=== PATIENT | female | born 1970 | race Caucasian/White ===

== ENCOUNTER 2021-10-15 13:44 | Day surgery (SDC) | payer OTHER, SELFPAY ==
[2021-10-15] VITALS (9 sets, daily range): BP systolic 125–152; BP diastolic 77–93; PULSE 75–109; RESP 12–20; TEMP 36.1–36.8; O2SAT 98–100
--- NOTE | ~2021-10-15 | CT_ITS ---
EXAMINATION: CT abdomen pelvis wo con DATE: 10/15/2021 15:42 INDICATION: Left lower quadrant abdominal pain since 0200 hours today. Nausea, vomiting, diarrhea. TECHNIQUE: Computed tomography (CT) of the abdomen and pelvis was performed without intravenous contr ast. Automated exposure control and iterative reconstruction technique were employed. Exam dose: 470 .37 mGy-cm total exam DLP. COMPARISON: None. FINDINGS: The lung bases are clear of infiltrate or consolidation. Normal heart size. No pericardial or pleural effusion. The liver, gallbladder, bile ducts, spleen, pancreas, pancreatic duct, and adrenal glands and kidneys are unremarkable. Normal caliber of the abdominal aorta. No intraperitoneal or retroperitoneal or pelvic mass lesion or adenopathy or ascites. Retroverted uterus. Urinary bladder and adnexal areas are unremarkable. 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 No abscess cavity or free air is identified. 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 Degenerative spurring is noted in the lower thoracic spine. No suspicious osteolytic or osteoblastic lesions are noted. IMPRESSION: Acute appendicitis Reviewed, dictated and finalized at [facility] Reviewed, dictated and finalized at [facility]. IMPRESSION: Acute appendicitis
[2021-10-15 14:27] LABS: Basophils Percent Auto 0.2 % (0.2-1.2); Hematocrit 41.6 % (37.0-47.0); Hemoglobin 13.5 g/dL (12.0-15.0); Immature Granulocyte Absolute 0.05 K/mm3 (0.00-0.031); Immature Granulocyte Percent A 0.4 % (0-0.5); Lymphocytes Absolute Auto 0.75 K/mm3 (0.9-3.2); Lymphocytes Percent Auto 5.5 % (18.3-44.2); Mean Corpuscular HGB Conc 32.5 g/dl (32-36); Mean Corpuscular Hemoglobin 30.6 pg (26-34); Mean Corpuscular Volume 94.3 fl (80-100); Mean Platelet Volume 10.1 fl (7.4-10.4); Monocytes Absolute Auto 0.8 K/mm3 (0.1-0.6); Monocytes Percent Auto 5.8 % (2.6-8.5); Neutrophils Absolute Auto 12.1 K/mm3 (1.3-6.7); Neutrophils Percent Auto 88.1 % (45.5-73.1); Platelet Count Result 362 k/mm3 (150-375); Red Blood Count 4.41 M/mm3 (4.2-5.4); White Blood Count 13.7 K/mm3 (4.5-10.0)
[2021-10-15 14:33] LABS: Appearance Urine Clear (Clear); Bilirubin Urine Negative (Negative); Blood Urine Negative (Negative); Color Urine Yellow (Yellow); Glucose Urine UA Negative (Negative); Ketones Urine 3+ mg/dL (Negative); Leukocyte Esterase Ur Negative LEU/UL (Negative); Nitrate Urine Negative (Negative); Protein Urine Trace mg/dL (Negative); Specific Grav Ur 1.025 (1.001-1.035); Urobilinogen Urine 0.2 mg/dL (<2.0); pH Urine 6.5 (5.0-9.0)
[2021-10-15 14:36] LABS: Mucus Urine Rare /lpf; RBC Urine 0-2 /hpf (0-2); Squamous Epithelial Cell Urine Rare /hpf (Few); WBC Urine 0-3 /hpf
[2021-10-15 14:37] LABS: Alanine Aminotransferase 16 U/L (6-35); Albumin Level 4.6 g/dL (3.5-5.1); Alkaline Phosphatase 85 U/L (38-126); Anion Gap 4 mmol/L (8-16); Aspartate Amino Transferase 28 U/L (14-36); Bilirubin,Total 0.5 mg/dL (0.2-1.3); Blood Urea Nitrogen 8 mg/dL (7-17); Calcium 9.1 mg/dL (8.4-10.2); Carbon Dioxide 26 mmol/L (22-30); Chloride 103 mmol/L (98-107); Estimated CRCL calculation 108 ml/min; Estimated Glomerular Filt Rate > 60; Glucose 132 mg/dL (65-110); Lipase 23 U/L (23-300); Potassium 4.8 mmol/L (3.4-5.0); Sodium 133 mmol/L (137-145)
[2021-10-15 14:41] LABS: Add Urine Microscopic? YES
--- NOTE | 2021-10-15 14:55 | ED.NAVMDI ---
HPI - Nausea/Vomiting/Diarrhea General Chief complaint: Nausea/Vomiting/Diarrhea Stated complaint: abd pain, flu symptoms Time Seen by Provider: 10/15/21 14:54 History of Present Illness HPI Narrative: The patient is a 50-year-old female presenting to the emergency department for evaluation of nausea, vomiting, lower abdominal cramping that has been present over the past 18 hours. Patient states that she awakened at 2 in the morning with lower abdominal cramping and several episodes of nonbloody, nonbilious emesis. Patient denies any upper abdominal pain. She denies flank pain, dysuria or hematuria. She denies fever, chills, cough or shortness of breath. Patient has history of symptomatic COVID infection in April 2021 for which she did not require hospitalization. Patient denies recent COVID contacts. States that she was around her grandchildren that had some rhinorrhea and congestion last week, and had a negative COVID test at home. All of her family members that tested for COVID were also negative. Patient has been able to tolerate a small amount of oral intake today without recurrent emesis. She reports significant watery diarrhea today without blood or mucus present in the stool. Patient denies history of diverticulitis or diverticulosis. She denies focal right lower quadrant pain or right upper quadrant pain. She reports mild abdominal distention and fullness. Patient denies recent food indiscretions. No recent travel. Related Data Home Medications Medication Instructions Recorded Confirmed norethindrone 1 mg-ethinyl 1 tablet PO DAILY 10/01/21 10/01/21 estradiol 20 mcg (21)-iron 75 mg (7) tablet (Blisovi Fe 05/30 (28)) Allergies Allergy/AdvReac Type Severity Reaction Status Date / Time Penicillins Allergy Unknown Rash Verified 10/01/21 15:21 Review of Systems Review of Systems: CONSTITUTIONAL: Denies fever, chills, or sweats. EYES: Denies visual changes, redness, or discharge. ENT: Denies rhinorrhea, congestion, sore throat, or otalgia. CARDIOVASCULAR: Denies chest pain, palpitations, or edema. RESPIRATORY: Denies cough or dyspnea. GASTROINTESTINAL: Reports lower abdominal pain, nausea, vomiting and diarrhea GENITOURINARY: Denies dysuria or hematuria. SKIN: Denies rash or itching. MUSCULOSKELETAL: Denies back pain, joint pain, or myalgia. NEUROLOGIC: Denies headache, numbness, or weakness. [facility] Past Medical History Medical History Abnormal Pap smear of cervix LSGIL Screening mammogram, encounter for Family History Family History Mother Diabetes mellitus Hypertension Heart disease Father Malignant neoplastic disease Social History Social History Smoking status: Never smoker Alcohol intake: current Drinks per week: 10 Substance use: never Substance use type: does not use Additional living arrangements comments: Additional occupation/education comments: IT Gender identity (if verbalized by the patient): Female Sexual Orientation (if Verbalized by the Patient): Straight or Heterosexual Exam Narrative: GENERAL: Awake, alert, conversant HEAD: Normocephalic, atraumatic. EYES: PERRLA and EOMI. ENT: Nares clear, no rhinorrhea or epistaxis. Mucous membranes moist. NECK: Supple. CHEST: No respiratory distress, breathing even and non labored HEART: Regular rate, sinus rhythm ABDOMEN:Non distended, tender in the left lower quadrant, suprapubic area without rebound, rigidity or guarding, no focal RLQ abdominal pain, negative heel tap, negative psoas sign. No focal RUQ abdominal pain. EXTREMITIES: Normal range of motion. No edema. SKIN: Warm, dry, no rash. NEURO:No focal deficits. Alert and oriented x3 Course Vital Signs Vital signs: Vital Signs Temperature 36.8 C 10/15/21 13:49 Pulse Rate 101
[2021-10-15] MEDS: SODIUM CHLORIDE 0.9% IV 1,000 ML 999 ML IV CONT (15:49)
--- NOTE | 2021-10-15 16:01 | PC.NURSE ---
Per EDP Vianca, no orthostatic blood pressures needed.
[2021-10-15] MEDS: ceFAZolin 2 GM/D5W 50 ML 2 GM/50 ML BAG IVPB (16:54)
--- NOTE | 2021-10-15 16:54 | WPDANESEPP ---
Anes - Eval Pre Procedure Procedure: Operation Date: 10/15/21 16:30 Proposed Procedures p Laparoscopic Appendectomy - Ashok Lomas MD Date/Time: 10/15/21 16:54 Surgeon: ashok lomas Preop Diagnosis: acute appendicitis Pre Op Diagnosis: abd pain, flu symptoms Patient Data Age: 50 Gender: F Height: 1.73 m Weight: 84 kg Last Vital Signs Temp 36.8 C 10/15/21 13:49 Pulse 101 H 10/15/21 13:49 Resp 18 10/15/21 13:49 BP 145/85 H 10/15/21 13:49 Pulse Ox 99 10/15/21 13:49 O2 Del Method Room Air 10/15/21 13:49 Allergies Allergy/AdvReac Type Severity Reaction Status Date / Time Penicillins Allergy Unknown Rash Verified 10/01/21 15:21 Home Medications Medication Instructions Recorded Confirmed Type norethindrone 1 mg-ethinyl 1 tablet PO DAILY 10/01/21 10/01/21 History estradiol 20 mcg (21)-iron 75 mg (7) tablet (Blisovi Fe 05/30 (28)) Laboratory Tests 10/15/21 10/15/21 10/15/21 14:16 14:16 14:18 WBC 13.7 K/mm3 H K/mm3 (4.5-10.0) RBC 4.41 M/mm3 M/mm3 (4.2-5.4) Hgb 13.5 g/dL g/dL (12.0-15.0) Hct 41.6 % % (37.0-47.0) MCV 94.3 fl fl (80-100) MCH 30.6 pg pg (26-34) MCHC 32.5 g/dl g/dl (32-36) RDW 13.0 % % (11.5-14.5) Plt Count 362 k/mm3 k/mm3 (150-375) MPV 10.1 fl fl (7.4-10.4) Immature Gran % (Auto) 0.4 % % (0-0.5) Neut % (Auto) 88.1 % H % (45.5-73.1) Lymph % (Auto) 5.5 % L % (18.3-44.2) [place] % (Auto) 5.8 % % (2.6-8.5) Eos % (Auto) 0.0 % % (0-4.4) Baso % (Auto) 0.2 % % (0.2-1.2) Lymph # (Auto) 0.75 K/mm3 L K/mm3 (0.9-3.2) [place] # (Auto) 0.8 K/mm3 H K/mm3 (0.1-0.6) Eos # (Auto) 0.0 K/mm3 K/mm3 (0-0.3) Baso # (Auto) 0.0 K/mm3 K/mm3 (0.0-0.1) Abs Immat Gran (auto) 0.05 K/mm3 H K/mm3 (0.00-0.031) Absolute Neuts (auto) 12.1 K/mm3 H K/mm3 (1.3-6.7) Absolute Nucleated RBC 0.0 K/mm3 K/mm3 (0.0-0.012) Nucleated RBC % 0.0 % % (0.0-0.2) Sodium 133 mmol/L L mmol/L (137-145) Potassium 4.8 mmol/L mmol/L (3.4-5.0) Chloride 103 mmol/L mmol/L (98-107) Carbon Dioxide 26 mmol/L mmol/L (22-30) Anion Gap 4 mmol/L L mmol/L (8-16) BUN 8 mg/dL mg/dL (7-17) Creatinine 0.60 mg/dL L mg/dL (0.7-1.0) Estim Creat Clear Calc 108 ml/min ml/min Estimated GFR > 60 (59 - ) Glucose 132 mg/dL H mg/dL (65-110) Calcium 9.1 mg/dL mg/dL (8.4-10.2) Total Bilirubin 0.5 mg/dL mg/dL (0.2-1.3) AST 28 U/L U/L (14-36) ALT 16 U/L U/L (6-35) Alkaline Phosphatase 85 U/L U/L (38-126) Total Protein 8.0 g/dL g/dL (6.3-8.2) Albumin 4.6 g/dL g/dL (3.5-5.1) Lipase 23 U/L U/L (23-300) Urine Color Yellow (Yellow) Urine Appearance Clear (Clear) Urine pH 6.5 (5.0-9.0) Ur Specific [place] 1.025 (1.001-1.035) Urine Protein Trace mg/dL mg/dL (Negative) Urine Glucose (UA) Negative mg/dL mg/dL (Negative) Urine Ketones 3+ mg/dL H mg/dL (Negative) Ur Blood (Man) Negative (Negative) Urine Nitrate Negative (Negative) Urine Bilirubin Negative (Negative) Urine Urobilinogen 0.2 mg/dL mg/dL (<2.0) Leukocyte Esterase Rfl Negative JASON/UL JASON/UL (Negative) Urine RBC 0-2 /hpf /hpf (0-2) Urine WBC 0-3 /hpf /hpf Ur Squamous Epith Cells Rare /hpf /hpf (Few) Urine Mucus Rare /lpf /lpf Patient hx anesthesia problems: none Family hx anesthesia problems: none Results Review: All pre-operative results and documents have been reviewed as part of the pre-operative evaluati
--- NOTE | 2021-10-15 17:14 | PM.SD2 ---
Same Day Admit/Disch: HPI History of Present Illness Chief complaint: Right lower quadrant abdominal pain Narrative: Adriana Iverson is a 50 year old female who was on awakened about 2:00 a.m. this morning with periumbilical sharp abdominal pain. She thought it would get better after bowel movement but it did not. She had some nausea and vomiting. About noon today the pain moved to the right lower quadrant. She came to the emergency room where [place] [address]. She had suprapubic and left lower quadrant tenderness. CT scan of the abdomen pelvis showed an 11 mm dilated appendix with periappendiceal stranding consistent with acute appendicitis. Patient was seen in the emergency room and is taken to surgery now for laparoscopic appendectomy. [facility] Past Medical History Medical History (Updated 10/15/21 @ 16:54 by Kenya Villareal CRNA) Abnormal Pap smear of cervix LSGIL Overweight (BMI 25.0-29.9) Screening mammogram, encounter for Family History Family History Mother Diabetes mellitus Hypertension Heart disease Father Malignant neoplastic disease Social History Social History Smoking status: Never smoker Alcohol intake: current Drinks per week: 10 Substance use: never Substance use type: does not use Additional living arrangements comments: Additional occupation/education comments: IT Gender identity (if verbalized by the patient): Female Sexual Orientation (if Verbalized by the Patient): Straight or Heterosexual Same Day Admit/Disch: Med Pre-admit Medications Home Medications Medication Instructions Recorded Confirmed Type norethindrone 1 mg-ethinyl 1 tablet PO DAILY 10/01/21 10/01/21 History estradiol 20 mcg (21)-iron 75 mg (7) tablet (Blisovi Fe 05/30 ()) hydrocodone 5 mg-acetaminophen 325 1 - 2 tablet PO Q6H PRN pain #7 10/15/21 Rx mg tablet tabs ketorolac 10 mg tablet 10 mg PO Q6H 4 days #16 tabs 10/15/21 Rx Exam Const: General: no acute distress, alert, awake and uncomfortable HENMT: Head: normocephalic and atraumatic Mouth: Yes Normal oral and palatal mucosa present Eyes: Conjunctivae: conjunctivae normal Pupils: Equal, round and reactive pupils present EOM: EOMs intact bilaterally Neck: Neck: normal visual inspection, no lymphadenopathy and nontender GI: Inspection: non-distended GI Palp: Yes Soft to palpation, Yes Tenderness to palpation present (GI) (Suprapubic mostly, with guarding), Yes Guarding due to palpation present (GI), No Hepatomegaly present and No Splenomegaly present Skin: Lesions: no lesions Rashes: no rashes Neuro: General: no focal motor deficits and CN's II-XI intact bilaterally Cranial nerves: Yes Equal, round and reactive pupils present, Yes Bilaterally intact EOM present, Yes facial symmetry and Yes Midline tongue present Speech: normal speech Motor exam (neuro): 5/5 motor strength present throughout and Motor abnormalities not present Extrem: General: no clubbing, cyanosis or edema and edema Psych: Affect: normal affect Thought process: Normal thought process present Insight: Good insight present (Psych) DS: Data Data Completed and Pending Labs on day of discharge: Labs from last 24 hours 10/15/21 10/15/21 10/15/21 14:18 14:16 14:16 WBC 13.7 H RBC 4.41 Hgb 13.5 Hct 41.6 MCV 94.3 MCH 30.6 MCHC 32.5 RDW 13.0 Plt Count 362 MPV 10.1 Immature Gran % (Auto) 0.4 Neut % (Auto) 88.1 H Lymph % (Auto) 5.5 L [place] % (Auto) 5.8 Eos % (Auto) 0.0 Baso % (Auto) 0.2 Lymph # (Auto) 0.75 L [place] # (Auto) 0.8 H Eos # (Auto) 0.0 Baso # (Auto) 0.0 Abs Immat Gran (auto) 0.05 H Absolute Neuts (auto) 12.1 H Absolute Nucleated RBC 0.0 Nucleated RBC % 0.0 Sodium 133 L Potassium 4.8 Chloride 103 Carbon D
[2021-10-15] MEDS: LACTATED RINGERS 1,000 ML 30 ML IV CONT (17:20)
--- NOTE | 2021-10-15 17:20 | WPDHPUPDATE1 ---
History and Physical Update Update Date/Time: 10/15/21 17:20 History and Physical has been reviewed, including an updated exam of the patient. There are NO changes in the patient's condition. Risks, benefits, and alternatives have been discussed and questions answered. Patient agrees to proceed with procedure.
[2021-10-15] MEDS: KETOROLAC 30 MG/ML VIAL (*BKC) IV PUSH (17:26)
--- NOTE | 2021-10-15 17:26 | P.PNAN_ITS ---
Anes - Eval Final PreProcedure Day of Procedure 10/15/21 17:26 Patient weight: overweight Heart: regular rate and rhythm Lungs: clear to auscultation Airway: Mallampati scale class II Neurological: alert and oriented Last oral intake: >/= 8 hours ASA classification: II Emergent: yes Anesthetic plan: proceed Anesthesia type and monitoring: general ETT and standard monitoring Results Review: All pre-operative results and documents have been reviewed as part of the pre- operative evaluation. Informed Consent: The patient's anesthetic plan and its attendant risks and benefits were discussed with the patient/family/POA. Questions were solicited and answers provided to the satisfaction of the patient/family/POA.
[2021-10-15] MEDS: LIDO 1%/EPINEPHRINE/PF 1:200,000 30 ML VIAL XX (17:44)
--- NOTE | 2021-10-15 18:23 | W.PM.PROC2 ---
Procedure Note - Detailed Date of Procedure 10/15/21 Pre-op Diagnosis Acute appendicitis Post-op Diagnosis Same Procedure Performed Laparoscopic appendectomy Surgeon Sukumar Ch MD Box Worker Nick [place] Anesthesia General and Local (1% lidocaine with epinephrine) Indications Patient is a 50-year-old woman who started having mid abdominal pain about 2:00 a.m.. This moved to the right lower quadrant about 6 hours ago. She had nausea and vomiting. In the emergency room she had tenderness in the suprapubic region [place] [address] scan showed acute appendicitis. She is taken to surgery now for laparoscopic appendectomy. Findings Patient had a retrocecal and up appendicitis with some degree of malrotation as the appendix itself was very close to the gallbladder and right lobe of the liver. There was no evidence of perforation of the appendix. No other significant findings were noted. Description of Procedure The patient was taken to surgery and induced into general anesthesia. The abdomen is prepped and draped. Trocars were placed in usual fashion using local anesthetic and applied Medical optical trocars. A 5 mm camera was used. Patient was placed in Trendelenburg with the right-side elevated. We looked for the appendix in the right lower quadrant but it was apparent it was much higher but on the right side of the abdomen. Looking up near the liver, we found the cecum and then a retrocecal appendix. Some of the mesorectum index was able to be elevated and we started dissection of the appendix from the retroperitoneal bands and from some inflammatory adhesions. While retracting the appendix, the appendiceal artery began bleeding in the appendiceal mesentery. Cautery was used and the appendiceal artery was thoroughly cauterized and then divided. Patient was then placed in reverse Trendelenburg with the right-side elevated to better expose the right upper quadrant where the appendix was actually located. The blood was suctioned and the area was irrigated until it was clean and had a more normal appearance. We then continued our dissection of the appendix freeing it from further bands causing some of the appendix to be retroperitoneal. Eventually we mobilized the appendix and exposed it more anteriorly. There was still some bands on the very base of the appendix which had to be taken down so that the full length of the appendix was exposed. I was then able to skeletonize the base of the appendix as it joined with the cecum. I ligated the appendix at its base. I then amputated the appendix just above the ligature and cauterized the mucosa of the appendiceal stump. The appendix was placed in an Endo-Catch bag and retrieved through the 10 11 left lower quadrant trocar site. I then replaced the left lower quadrant trocar. We exposed the right upper quadrant and irrigated and suctioned the area thoroughly. No evidence of bleeding or debris was noted. I then used the Jayme cone and Jayme-Belkis suture pass device. An 0 Vicryl suture was used to close the fascia at the left lower quadrant 10 11 site where the appendix had been removed. We evacuated CO2 and removed trocar sleeves. The suture was tied down at the fascia in the left lower quadrant. The skin wounds were closed with subcuticular 4-0 Monocryl skin suture. The wounds were dressed with Exofin surgical adhesive. The patient was awakened and taken to recovery in good condition. Sponge and needle counts were correct x2. Estimated Blood Loss -20 Drains No Packing No Pathology Yes (Appendix) Complications No immediate complications Condition Stable Disposition PACU [facility] Billing Surgery - Charge Forward: Surgery Billing (Laparoscopic appendectomy)
== END 2021-10-15 20:00 | disposition home or self-care (01) ==
LOC: ANHED 14:54 → ANHSURGERY 16:39
PROVIDERS: Emergency Provider Emergency Medicine; PCP Family Medicine Sports Medicine; Visit Provider Surgery
PROC: 0DTJ4ZZ Resection of Appendix, Percutaneous Endoscopic Approach (ICD-10-PCS; CPT 44970; principal; 2021-10-15 16:30)
DX: K35.30 Acute appendicitis with localized peritonitis, without perforation or gangrene (principal)
CPT/HCPCS: 44970; 36415; 74176; 80053; 81001; 81025; 83690; 85025; 88304; 96361; 96374; 99285; J0131; J0330; J0690; J1100; J1885; J2250; J2405; J2704; J3010; J7030; J7120

== ENCOUNTER 2024-07-21 00:22 | Day surgery (SDC) | payer OTHER, SELFPAY ==
[2024-07-05 15:12] VITALS: BMI 29.7
--- NOTE | 2024-07-05 15:20 | PC.NURSE ---
Report to the Outpatient Waiting Room, entrance under the green pavilion located off [facility], at time ___0600am____ on date _07/21/24 . Planned Procedure Time: __0730am .? Time changes happen often and if your time is changed the preop area will call you the afternoon before. - You and your visitor will be asked to self-screen and do not enter if you have any COVID symptoms. Please call surgeon if you need to reschedule. - A mask is optional within the hospital at this time. Patients may have clear liquids (water, carbonated beverages, clear teas, apple juice) until 3 hours prior to surgery with a maximum of 20 ounces. - No food from midnight until time of surgery and no smoking, or chewing tobacco (or any form of nicotine). No chewing gum, candy or mints. (0430am) Take only the following medications with a SIP of water on the morning of surgery: None DO NOT STOP ANY OF YOUR OTHER PRESCRIPTION MEDICATIONS PRIOR TO SURGERY EXCEPT THE FOLLOWING Hold all vitamins and supplements for 3 days per anesthesiologist. Medications to discontinue per physician None Date to take last dose__None Please no make-up, nail cook islander, hairspray, perfume, deodorant, or body powder the day of surgery.? No jewelry (including any body piercings) or valuables the day of surgery, leave them at home.? Please take a shower or bath the night before, or the morning of, surgery with an antibacterial soap.? Wear comfortable, loose fitting clothing.? - Jewelry must be removed prior to entering the operating room.? Rings and piercings that are not removed may be cut off. - The hospital will not accept responsibility for valuables.? - Please leave all valuables, including medications, at home the day of surgery. If you are going home after surgery, a licensed bus driver school must drive you home.? - NO public transportation without another adult if you receive anesthesia. - We recommend that an adult stay with you for 24 hours following discharge. - We also recommend that you do not drive, make important decision, drink alcoholic beverages, or take any drugs that were not prescribed by your health care provider for at least 24 hours after your discharge time. Follow any additional instructions given to you from your surgeon. Telephone instructions given to __Patient and asked if any additional questions and then verbalized understanding. Patient advised to call surgeon office or pre surgery nurse liaison [phone] if any additional questions.
--- OUTSIDE RECORDS SUMMARY | 2024-07-21 00:25 | XMS_ITS | Encounter Summary ---
Author Organization [facility] Address 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
--- OUTSIDE RECORDS SUMMARY | 2024-07-21 00:25 | XMS_ITS | Encounter Summary ---
Author Organization [facility] Address [address] [place] [address] Care Team Providers Care Laborer [address] Name Role Phone Lisa Palafox DO Primary Care Provider [phone] Encounter Details Date Type Department Care Team (Late st Contact Info) Description 11/05/2022 MyChart Message Enc [facility] [address], [place] [id number] Mychart, [facility] Provider Air Quality Message Social History Tobacco Use Types Packs/Day Years Used Date Smoking Tobacco: Never Smokeless Tobacco: Never Alcohol Use Standard Drinks/Week Comments Yes 23.3 (1 standard drink = 0.6 oz pure alcohol) socially PHQ-2 Answer Date Recorded PHQ-2 Score - If the patient scores above 3, please move on to questions 3-9 0 12/24/2021 Comments No Sex and Gender Information Value Date Recorded Sex Assigned at Female 12/09/2019 3:15 PM CDT Legal Sex Female 11:34 PM CDT Gender Identity Female 12/09/2019 3:15 PM CDT Sexual Orientation Straight 12/09/2019 3: 15 PM CDT documented as of this encounter Plan of Treatment Not on file documented as of this encounter Visit Diagnoses Not on filedocumented in this encounter Care Teams Laborer [address] Relationship Specialty Start Date End Date Lisa Palafox DO [address] [place] [address] [place] [address] PCP - General FAMILY PRACTICE 12/09/11 documented as of this encounter
--- OUTSIDE RECORDS SUMMARY | 2024-07-21 00:25 | XMS_ITS | Clinical Summary ---
Author Organization [facility] Address [address] [place] [address] Care Team Providers Care New Product Trainer Name Role Phone Lisa Palafox DO Primary Care Provider [phone] Allergies Active Allergy Reactions Criticality Noted Date Comments Linden Oil Cough Low 12/08/2011 Penicillins Unknown Low 11/22/2011 Infant allergy, unsure on reaction Medications No known medications Active Problems Problem Noted Date Diagnosed Date Screening for colon cancer 02/01/2021 Overview (02/01/2021): Added automatically from request for surgery [id number] Breakthrough bleeding 09/11/2020 Oral contraceptive causing a dverse effect in therapeutic use, subsequent encounter 09/11/2020 TSH elevation 09/11/2020 Family history of skin cancer 12/22/2016 Overview (11/05/2018): Date Onset: 12/22/2016 Anxiety 12/30/2013 Overview (11/05/2018): Date Onset: 12/30/2013 Essential (primary) hypertension 12/30/2013 Overview (11/05/2018): Date Onset: 12/30/2013 Nevus, non-neoplastic 10/07/2012 Overview (11/05/2018): Note: 4 on left leg and 1 left LQABD Date Onset: 10/07/2012 Hyperlipidemia 12/09/2011 Overview (11/05/2018): Date Onset: 12/09/2011 Asthma (HHS/HCC) 12/08/2011 Resolved Problems Problem Noted Date Diagnosed Date Resolved Date Vasovagal syncope 09/11/2020 02/19/2024 Screen for colon cancer 09/11/2020 05 Immunizations Name Administration Dates Next Due Fluzone 6 Months+ Quad (0.5 mL Prefilled Syringe) 02/22/2020 Influenza Adult (Generic) 02/17/2024,,04/18/2022, 020 PFIZER COVID-19 (ORIGINAL FORMULATION, PURPLE CAP) mRNA, LNP-S, PF, 30 MCG/0.3 ML DOSE 08/30/2020,08/06/2020,07/20/2020 Shingrix 05/23/2022,02/10/2022 Tdap (Generic) 03/08/2017,12/18/2014 Family History Medical History Relation Comments Cancer Daughter Cancer Father Diabetes Mother Hypertension Mother Relation Status Comments Brother Alive throat cancer, 2 htn. 2 skin cancer, kidney stones Daughter Alive skin cancer carmen noma 2 rounds Father oat cell cancer lung vs liver Maternal Aunt Maternal Grandfather bleeding ul cers Maternal Grandmother alz Maternal Uncle Alive Mother dm cardiac htn Paternal Aunt Paternal Grandmother Paternal Uncle Sister Alive 3 sisters health y,1 has htn oldest sister, 1 sis diverticulosis Son Alive benign skin lesi on Social History Tobacco Use Types Packs/Day Years Used Date Smoking Tobacco: Never Smokeless Tobacco: Never Tobacco Cessation:Counseling Given: Not Answered Alcohol Use Standard Drinks/Week Comments Yes 23.3 (1 standard drink = 0.6 oz pure alcohol) socially PHQ-2 Answer Date Recorded Patient Health Questionnaire-2 Score 0 05/22/2023 Comments No Sex and Gender Information Value Date Recorded Sex Assigned at Female 12/09/2019 3:15 PM CDT Legal Sex Female 11:34 PM CDT Gender Identity Female 12/09/2019 3:15 PM CDT Sexual Orientation Straight 12/09/2019 3: 15 PM CDT Last Filed Vital Signs Vital Sign Reading Time Taken Comments Blood Pressure 130/82 02/19/2024 9:08 AM CDT Pulse 78 02/19/2024 9:08 AM CDT Temperature 35.6 C (96 F) 02/19/2024 9:08 AM CDT Respiratory Rate 16 02/19/2024 9:08 AM CDT Oxygen Saturation 98% 02/19/2024 9:08 AM CDT Inhaled Oxygen Concentration - - Weight 71.2 kg (157 lb) 02/19/2024 9:08 AM CDT Height 170.2 cm (5' 7 ) 02/19/2024 9:08 AM CDT Body Mass Index 24.59 02/19/2024 9:08 AM CDT Plan of Treatment Health Maintenance Due Date Last Done Comments Pneumococcal Vaccine: Pediatrics (0 to 5 Years) and At-Risk Patients (6 to 64 Years) (1 of 2 - PCV) 1976 Hepatitis B Vaccines (1 of 3 - 19+ 3-dose series) 1989 Cervical Cancer Screening Pap with HPV Testing (Age 30 to 64) Every 5 Years 2000 Cervical Cancer Screening Pap Smear (Age 30 to 64) Every 3 Years 09/06/2023 09/05/2020 COVID-19 Vaccine ( season) 2024 08/30/2020, 08/06/2020, 07/20/2020 PHQ-2 (Physician [place]) 05/11/2024 05/22/2023 PHQ-2 (Physician [place]) 05/22/2024 05/22/2023 Cervical Cancer Screening with HPV 02/18/2025 Postponed from 09/06/2023 (Going to Outside Clinic) Annual Physical 04/20/2025 02/19/2024, 12/09, 09/11/2020, Additional history exists Postponed from 02/18/2025 (Future Appointment) Mammogram Screening 02/15/2026 02/16/2024, 02/16/2024, 02/19/2023, Additional history exists DTaP, Tdap and Td Vaccines (3 - Td or Tdap) 03/08/2027 03/08/2017, 12/18/2014 Colorectal Cancer Screening Colonoscopy (10 Years) 02/20/2031 02/20/2021 Hepatitis C Completed 12/20/2020 Zoster Vaccines Completed 05/23/2022, 02/10/2022 Influenza Adult Completed 02/17/2024, 02/10, 04/18/2022, Additional history exists Meningococcal B Vaccine Aged Out No l onger eligible based on patient's age to complete this topic Meningococcal Vaccine Aged Out No antonio jeff eligible based on patient's age to complete this topic RSV Immunizations Under 20 Months Aged Out No longer eligible based on patient's age to complete this topic Procedures Procedure Name Priority Date/Time Associated Diagnosis Comments MAMMOGRAM GENERIC (SCAN ORDER) 02/16/2024 HEPATITIS C ANTIBODY Routine 12/20/2020 9:47 AM CDT Annual physical exam CYTOPATH CERV/VAG THIN LAYER Routine 09/05/2020 12:00 AM CDT from Last 3 Months or Most Recently Relevant to Health Maintenance Results * MAMMOGRAM GENERIC (SCAN ORDER) (02/16/2024) Anatomical Region Laterality Modality Other 02/16/2024 [facility] Scanned SCANNING Final Resu lt * HEPATITIS C ANTIBODY (12/20/2020 9:47 AM CDT) HEPATITIS C AB NON-REACTI VE NON-REACTI VE 12/20/2020 3:47 PM CDT [facility] 12/20/2020 9:47 AM CDT us Lisa Palafox DO LABORATORY Final Result [facility] [address] [place] [address], [place] [phone] * Cytopath Cerv/Vag Thin Layer (09/05/2020 12:00 AM CDT) us Lars Jason MD PATHOLOGY/CYTOLOGY ORDERABLE S Final Result [facility] [address] [place] [address] from Last 3 Months or Most Recently Relevant to Health Maintenance Insurance [employer] Advance Directives Documents on File Type Date Recorded Patient Shagger Expl anation Legal Documents 11/05/2018 MEDICAL CARE CONSENT FORM Care Teams New Product Trainer Relationship Specialty Start Date End Date Lisa Palafox DO [address] [place] [address] [place] [address] PCP - General FAMILY PRACTICE 12/09/11
--- OUTSIDE RECORDS SUMMARY | 2024-07-21 00:25 | XMS_ITS | Clinical Summary ---
Author Organization [facility] Administrative Offices Address [address] [place] [phone] Care Team Providers Care Door Assembler Name Role Phone Lisa Palafox DO Primary Care Provider [phone] Encounters Date Type Department Care Team Description 07/19/2024 External Device Data [facility] ABSTRACTION Provider, Abstract 07/16/2024 External Device Data [facility] ABSTRACTION Provider, Abstract 07/15/2024 External Device Data [facility] ABSTRACTION Provider, Abstract 07/13/2024 External Device Data [facility] ABSTRACTION Provider, Abstract 06/29/2024 External Device Data [facility] ABSTRACTION Provider, Abstract 06/02/2024 External Device Data [facility] ABSTRACTION Provider, Abstract 05/24/2024 External Device Data [facility] ABSTRACTION Provider, Abstract from Last 3 Months Family History Medical History Relation Name Comments Breast Cancer Neg Hx Ovarian Cancer Neg Hx Social History Tobacco Use Types Packs/Day Years Used Date Smoking Tobacco: Never Assessed Comments Unknown Sex and Gender Information Value Date Recorded Sex Assigned at Not on file 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 Gender Identity Not on file Sexual Orientation Not on file Occupation Industry Job Start Date Job End Date Not on file Not on file Not on file Not on file Plan of Treatment Health Maintenance Due Date Last Done Comments Pre-Diabetes and Diabetes Screening 1970 PNEUMOCOCCAL VACCINE 0-49 YE ARS (1 of 2 - PCV) 1976 HEPATITIS B VACCINES (1 of 3 - 19+ 3-dose series) 1989 COLORECTAL SCREENING 10/28/2015 Colorectal Cancer Screening 10/28/2015 FIT-DNA Q 3 years 10/28/2015 FIT/FOBT Q 1 year 10/28/2015 Flex Sig/CT Colonography Q 5 years 10/28/2015 CERVICAL CANCER SCREENING 09/06/2023 09/05/2020 INFLUENZA VACCINE (#1) 2023 COVID-19 Vaccine (2023-2 5 season) 2024 08/30/2020, 08/06/2020, 07/20/2020 BREAST CANCER SCREENING 02/15/2025 02/16/20 24, 02/19/2023, 03/09/2019, Additional history exists DTAP/TDAP/TD VACCINES (3 - T d or Tdap) 03/08/2027 03/08/2017, 12/18/2014 ZOSTER VACCINE Completed 05/23/2022, 02/10/2022 Procedures Procedure Name Priority Date/Time Associated Diagnosis Comments MAMMO 3D LEXA SCREEN BILAT W OR WO CAD Routine 02/16/2024 9:53 AM CDT Encounter for screening mammogram for malignant neoplasm of breast from Last 3 Months or Most Recently Relevant to Health Maintenance Results * MAMMO 3D LEXA SCREEN BILAT W OR WO CAD (02/16/2024 9:53 AM CDT) Anatomical Region Laterality Modality Breast Bilateral Mammography 02/16/2024 9:58 AM CDT Impressions 02/17/2024 7:48 AM CDT IMPRESSION: 1. No concerning findings. OVERALL FINAL ASSESSMENT: BI-RADS CATEGORY 1 - Negative. RECOMMENDATIONS: 1. Recommend annual mammography. DICTATION LOCATION: [facility] 02/17/2024 7:48 AM CDT BILATERAL SCREENING DIGITAL MAMMOGRAM WITH 3D TOMOSYNTHESIS AND CAD DATE: 02/16/2024 9:53 AM HISTORY: Routine yearly screening exam. TECHNIQUE: Low-dose full-field digital breast tomosynthesis examination was performed of both breasts with 2D and 3D acquisitions. CAD was utilized. COMPARISON: February 2019 and February 2018 BREAST COMPOSITION: There are scattered areas of fibroglandular density. FINDINGS: No concerning dominant masses, suspicious calcifications, parenchymal asymmetries or areas of architectural distortion are identified in either breast. Procedure Note Shreyas Wilks MD - 02/17/2024 BILATERAL SCREENING DIGITAL MAMMOGRAM WITH 3D TOMOSYNTHESIS AND CAD DATE: 02/16/2024 9:53 AM HISTORY: Routine yearly screening exam. TECHNIQUE: Low-dose full-field digital breast tomosynthesis examination was performed of both breasts with 2D and 3D acquisitions. CAD was utilized. COMPARISON: February 2019 and February 2018 BREAST COMPOSITION: There are scattered areas of fibroglandular density. FINDINGS: No concerning dominant masses, suspicious calcifications, parenchymal asymmetries or areas of architectural distortion are identified in either breast. IMPRESSION: 1. No concerning findings. OVERALL FINAL ASSESSMENT: BI-RADS CATEGORY 1 - Negative. RECOMMENDATIONS: 1. Recommend annual mammography. DICTATION LOCATION: [facility] Lars Jason MD MAMMO ORDERABLES Final Result from Last 3 Months or Most Recently Relevant to Health Maintenance Insurance [employer] OPEN ACCESS HMO Care Teams Door Assembler Relationship Specialty Start Date End Date Lisa Palafox DO [address] [place] [address] [place] [address] PCP - General Family Practice 02/13/11
[2024-07-21 06:15] VITALS: BP 145/85; PULSE 72; RESP 16; TEMP 36.3; O2SAT 98
--- NOTE | 2024-07-21 06:53 | WPDHPUPDATE1 ---
History and Physical Update Update Date/Time: 07/21/24 06:53 History and Physical has been reviewed, including an updated exam of the patient. There are NO changes in the patient's condition. Risks, benefits, and alternatives have been discussed and questions answered. Patient agrees to proceed with procedure.
[2024-07-21] MEDS: ACETAMINOPHEN 500 MG TABLET 1000 MG PO (07:00)
[2024-07-21] MEDS: LACTATED RINGERS 1,000 ML 30 ML IV CONT (07:00)
[2024-07-21 07:02] LABS: Hematocrit 38.1 % (37.0-47.0); Hemoglobin 12.6 g/dL (12.0-15.0); Mean Corpuscular HGB Conc 33.1 g/dl (32-36); Mean Corpuscular Hemoglobin 30.9 pg (26-34); Mean Corpuscular Volume 93.4 fl (80-100); Platelet Count Result 284 k/mm3 (150-375); Red Blood Count 4.08 M/mm3 (4.2-5.4); Red Cell Distribution Width 13.1 % (11.5-14.5); White Blood Count 5.9 K/mm3 (4.5-10.0)
[2024-07-21 07:21] LABS: BEDSIDEPREGUCG Negative (Negative)
--- NOTE | 2024-07-21 07:58 | P.PNAN_ITS ---
Anes - Initial Pre Proc Eval Procedure: Operation Date: 07/21/24 08:30 Proposed Procedures p Hysteroscopy, Dilation and Curettage with Roselyn Endometrial Ablation - Lars Jason MD Date/Time: 07/21/24 07:58 Surgeon: Lars Jason MD Pre Op Diagnosis: abn uterine bleeding Patient Data Age: 53 Gender: F Height: 1.7 m Weight: 94.5 kg Last Vital Signs Temp 36.3 C L 07/21/24 06:15 Pulse 72 07/21/24 06:15 Resp 16 07/21/24 06:15 BP 145/85 H 07/21/24 06:15 Pulse Ox 98 07/21/24 06:15 O2 Del Method Room Air 07/21/24 06:15 Allergies Allergy/AdvReac Type Severity Reaction Status Date / Time Penicillins Allergy Unknown Rash Verified 07/21/24 07:17 Home Medications ?Medication ?Instructions ?Recorded ?Confirmed ?Type No Home Medications 02/16/24 07/12/24 History Laboratory Tests 07/21/24 07/21/24 06:30 06:58 WBC 5.9 K/mm3 (4.5-10.0) RBC 4.08 L M/mm3 (4.2-5.4) Hgb 12.6 g/dL (12.0-15.0) Hct 38.1 % (37.0-47.0) MCV 93.4 fl (80-100) MCH 30.9 pg (26-34) MCHC 33.1 g/dl (32-36) RDW 13.1 % (11.5-14.5) Plt Count 284 k/mm3 (150-375) MPV 10.0 fl (7.4-10.4) POC Urine HCG, Qual Negative (Negative) Patient hx anesthesia problems: none Family hx anesthesia problems: none Results Review: All pre-operative results and documents have been reviewed as part of the pre- operative evaluation. [facility] Past Medical History Medical History Overweight (BMI 25.0-29.9) Screening mammogram, encounter for Abnormal Pap smear of cervix [facility] Surgical History Surgical History H/O colonoscopy (02/08/22) normal History of appendectomy 10/15/21 Family History Family History Mother Diabetes mellitus Hypertension Heart disease Father Malignant neoplastic disease Social History Social History Smoking status: Never smoker Second hand tobacco smoke exposure: No Alcohol intake: current Drinks per week: 6 Substance use: never Substance use type: does not use Do You Feel Safe in your Home?: Yes Lack of Transportation: No Lack of Food: Never True Current Housing: I Have Housing Concerned About Future Housing: No Difficulty Paying Gas/Electric Bills: No Difficulty Paying for Meds: No Education: Bachelor's Degree Difficulty w/ Childcare or Family Care: No Living arrangements: with family Additional living arrangements comments: Occupation/Education: occupation Additional occupation/education comments: IT Gender identity (if verbalized by the patient): Female Sexual Orientation (if Verbalized by the Patient): Straight or Heterosexual Anes - Eval Final PreProcedure Day of Procedure 07/21/24 07:58 Patient weight: obese Heart: regular rate and rhythm Lungs: clear to auscultation Airway: Mallampati scale class II Neurological: alert and oriented Last oral intake: >/= 8 hours ASA classification: II Emergent: no Anesthetic plan: proceed Anesthesia type and monitoring: general GIVS and standard monitoring Results Review: All pre-operative results and documents have been reviewed as part of the pre- operative evaluation. Informed Consent: The patient's anesthetic plan and its attendant risks and benefits were discussed with the patient/family/POA. Questions were solicited and answers provided to the satisfaction of the patient/family/POA.
[2024-07-21] MEDS: ceFAZolin 2 GM/D5W 50 ML 2 GM/50 ML BAG IVPB (08:29)
--- NOTE | 2024-07-21 08:51 | W.PM.PROC2 ---
Procedure Note - Detailed Date of Procedure 07/21/24 Pre-op Diagnosis abn uterine bleeding Post-op Diagnosis Same Procedure Performed 1. Hysteroscopy with uterine curettings 2. Endometrial ablation Surgeon Lars Jason MD Anesthesia MAC Findings Slightly thickened endometrial cavity, no polyps or fibroids noted. Description of Procedure Patient prepped draped usual manner for this procedure. Cervix dilated to allow the hysteroscope placed which revealed findings as noted above. Curettings were obtained with minimal tissue removed. Roselyn instrument was placed, cavity assessment was performed, and instrument was activated. At the end of the cycle hysteroscope revealed good destruction throughout. At this point procedure was considered terminated patient was sent to recovery room stable condition. Estimated Blood Loss 10 Pathology Yes Complications No immediate complications Condition Stable Disposition PACU [facility] Billing Surgery - Charge Forward: Surgery Billing
[2024-07-21 08:54] VITALS: BP 126/80; PULSE 60; RESP 12; O2SAT 98
[2024-07-21 09:24] VITALS: BP 132/80; PULSE 69
== END 2024-07-21 09:43 | disposition home or self-care (01) ==
PROVIDERS: PCP Family Medicine Sports Medicine; Visit Provider Obstetrics & Gynecology
PROC: 0U5B8ZZ Destruction of Endometrium, Via Natural or Artificial Opening Endoscopic (ICD-10-PCS; CPT 58563; principal; 2024-07-21 08:30)
DX: R93.89 Abnormal findings on diagnostic imaging of other specified body structures (principal); N85.01 Benign endometrial hyperplasia; E66.9 Obesity, unspecified; Z68.32 Body mass index [BMI] 32.0-32.9, adult; Z98.890 Other specified postprocedural states; Z80.9 Family history of malignant neoplasm, unspecified; Z82.49 Family history of ischemic heart disease and other diseases of the circulatory system
CPT/HCPCS: 58563; 36415; 85027; 88305; A9270; J0690; J2003; J2250; J2405; J2704; J3010; J7030; J7120

== ENCOUNTER 2024-10-17 09:33 | Outpatient (CLI) | payer OTHER, SELFPAY ==
[2024-10-17 10:09] LABS: Hematocrit 43.6 % (37.0-47.0); Hemoglobin 14.2 g/dL (12.0-15.0); Mean Corpuscular HGB Conc 32.6 g/dl (32-36); Mean Corpuscular Hemoglobin 30.6 pg (26-34); Mean Platelet Volume 10.1 fl (7.4-10.4); Platelet Count Result 283 k/mm3 (150-375); Red Blood Count 4.64 M/mm3 (4.2-5.4); Red Cell Distribution Width 13.2 % (11.5-14.5); White Blood Count 4.4 K/mm3 (4.5-10.0)
--- OUTSIDE RECORDS SUMMARY | 2024-10-17 10:19 | XMS_ITS | Clinical Summary ---
Author Organization [facility] Administrative Offices Address [address] [place] [id number] Care Team Providers Care Trauma Counsellor Name Role Phone Lisa Palafox DO Primary Care Provider [phone] Encounters Date Type Department Care Team Description 10/04/2024 External Device Data [facility] ABSTRACTION Provider, Abstract 09/28/2024 External Device Data [facility] ABSTRACTION Provider, Abstract 09/27/2024 External Device Data [facility] ABSTRACTION Provider, Abstract 09/13/2024 External Device Data [facility] ABSTRACTION Provider, Abstract 07/27/2024 External Device Data [facility] ABSTRACTION Provider, Abstract 07/20/2024 External Device Data [facility] ABSTRACTION Provider, Abstract 07/19/2024 External Device Data [facility] ABSTRACTION Provider, Abstract from Last 3 Months Family History Medical History Relation Name Comments Breast Cancer Neg Hx Ovarian Cancer Neg Hx Social History Tobacco Use Types Packs/Day Years Used Date Smoking Tobacco: Never Assessed Comments Unknown Sex and Gender Information Value Date Recorded Sex Assigned at Not on file 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 Gender Identity Not on file Sexual Orientation Not on file Occupation Industry Job Start Date Job End Date Not on file Not on file Not on file Not on file Plan of Treatment Health Maintenance Due Date Last Done Comments HEPATITIS B VACCINES (1 of 3 - 19+ 3-dose series) 1989 HPV/Cotest (21-29) 10/28/1991 HPV/Cotest (30-65) 2000 COLORECTAL SCREENING 10/28/2015 Colorectal Cancer Screening 10/28/2015 FIT-DNA Q 3 years 10/28/2015 FIT/FOBT Q 1 year 10/28/2015 Flex Sig/CT Colonography Q 5 years 10/28/2015 CERVICAL CANCER SCREENING 09/06/2023 PAP SMEAR 09/06/2023 09/05/2020 INFLUENZA VACCINE (#1) 2023 COVID-19 [...] RECOMMENDATIONS: 1. Recommend annual mammography. DICTATION LOCATION: [facility] 02/17/2024 7:48 AM CDT BILATERAL SCREENING DIGITAL [...] RECOMMENDATIONS: 1. Recommend annual mammography. DICTATION LOCATION: [facility] Lars Jason MD MAMMO ORDERABLES Final Result from Last 3 Months or Most Recently Relevant to Health Maintenance Insurance OPEN ACCESS HMO Care Teams Trauma Counsellor Relationship Specialty Start Date End Date Lisa Palafox DO [address] [place] [address] [place] [address] PCP - General Family Practice 02/13/11
== END 2024-10-17 09:34 | disposition home or self-care (01) ==
PROVIDERS: PCP Family Medicine Sports Medicine; Visit Provider Obstetrics & Gynecology
DX: Z98.890 Other specified postprocedural states (principal)
CPT/HCPCS: 36415; 85027; 86850; 86900; 86901

== ENCOUNTER 2024-10-21 01:03 | Day surgery (SDC) | payer OTHER, SELFPAY ==
--- NOTE | 2024-10-13 12:13 | PC.NURSE ---
Report to the Outpatient Waiting Room, entrance under the green pavilion located off [facility], at time ____7 AM___ on date _10/21/24 . Planned Procedure Time: __9 AM .? Time changes happen often and if your time is changed the preop area will call you the afternoon before. - You and your visitor will be asked to self-screen and do not enter if you have any COVID symptoms. Please call surgeon if you need to reschedule. - A mask is optional within the hospital at this time. Patients may have clear liquids (water, carbonated beverages, clear teas, apple juice) until 3 hours prior to surgery ( 6 AM) with a maximum of 20 ounces. - No food from midnight until time of surgery and no smoking, or chewing tobacco (or any form of nicotine). No chewing gum, candy or mints. Take only the following medications with a SIP of water on the morning of surgery: NONE DO NOT STOP ANY OF YOUR OTHER PRESCRIPTION MEDICATIONS PRIOR TO SURGERY EXCEPT THE FOLLOWING Hold all vitamins and supplements for 3 days per anesthesiologist. Medications to discontinue per physician NONE Please no make-up, nail citizen of [place], hairspray, perfume, deodorant, or body powder the day of surgery.? No jewelry (including any body piercings) or valuables the day of surgery, leave them at home.? Please take a shower or bath the night before, or the morning of, surgery with an antibacterial soap.? Wear comfortable, loose fitting clothing.? Children are encouraged to wear pajamas. - Jewelry must be removed prior to entering the operating room.? Rings and piercings that are not removed may be cut off. - The hospital will not accept responsibility for valuables.? - Please leave all valuables, including medications, at home the day of surgery. If you are going home after surgery, a licensed experienced truck driver must drive you home.? - NO public transportation without another adult if you receive anesthesia. - We recommend that an adult stay with you for 24 hours following discharge. - We also recommend that you do not drive, make important decision, drink alcoholic beverages, or take any drugs that were not prescribed by your health care provider for at least 24 hours after your discharge time. For Pediatric surgeries, we recommend two adults accompany the child home. Follow any additional instructions given to you from your surgeon. Telephone instructions given to ___PATIENT and asked if any additional questions and then verbalized understanding. Patient advised to call surgeon office or pre surgery nurse liaison [phone] if any additional questions.
[2024-10-13 12:24] VITALS: BMI 31.3
[2024-10-21] VITALS (9 sets, daily range): BP systolic 109–149; BP diastolic 69–99; PULSE 65–80; RESP 14–19; TEMP 36.2–37; O2SAT 95–100; BMI 32.4
--- OUTSIDE RECORDS SUMMARY | 2024-10-21 01:05 | XMS_ITS | Clinical Summary ---
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 Recommend annual mammography. DICTATION LOCATION: [facility] 02/17/2024 7:48 AM CDT BILATERAL SCREENING DIGITAL [...] RECOMMENDATIONS: 1. Recommend annual mammography. DICTATION LOCATION: [facility] Lars Jason MD MAMMO ORDERABLES Final Result from Last 3 Months or Most Recently Relevant to Health Maintenance [place] [address] [place] [address] OPEN ACCESS HMO Care Teams [employer] Relationship Specialty Start Date End Date Lisa Palafox DO [address] [place] [address] [place] [id number] PCP - General Family Practice 02/13/11
--- NOTE | 2024-10-21 06:52 | WPDANESEPPF ---
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 [facility] Past Medical History Medical History Overweight (BMI 25.0-29.9) Screening mammogram, encounter for Abnormal Pap smear of cervix [facility] Surgical History Surgical History History of hysteroscopy (07/21/24) Hysteroscopy with uterine curettings Endometrial ablation H/O colonoscopy (02/08/22) normal History of appendectomy 10/15/21 Family History Family History Mother Diabetes mellitus Hypertension Heart disease Father Malignant neoplastic disease Social History Social History Smoking status: Never smoker Second hand tobacco smoke exposure: No Alcohol intake: current Drinks per week: 6 Substance use: never Substance use type: does not use Do You Feel Safe in your Home?: Yes Lack of Transportation: No Lack of Food: Never True Current Housing: I Have Housing Concerned About Future Housing: No Difficulty Paying Gas/Electric Bills: No Difficulty Paying for Meds: No Education: Bachelor's Degree Difficulty w/ Childcare or Family Care: No Living arrangements: with family Additional living arrangements comments: Occupation/Education: occupation Additional occupation/education comments: IT Gender identity (if verbalized by the patient): Female Sexual Orientation (if Verbalized by the Patient): Straight or Heterosexual Spiritual care concerns: No Anes - Eval Final PreProcedure Day of Procedure 10/21/24 06:52 Patient weight: obese Heart: regular rate and rhythm Lungs: clear to auscultation Airway: Mallampati scale class II Neurological: alert and oriented Last oral intake: >/= 8 hours ASA classification: II Emergent: no Anesthetic plan: proceed Anesthesia type and monitoring: general ETT and standard monitoring Results Review: All pre-operative results and documents have been reviewed as part of the pre-operative evaluation. Informed Consent: The patient's anesthetic plan and its attendant risks and benefits were discussed with the patient/family/POA. Questions were solicited and answers provided to the satisfaction of the patient/family/POA.
[2024-10-21] MEDS: LACTATED RINGERS 1,000 ML 30 ML IV CONT (06:55)
[2024-10-21] MEDS: KETOROLAC 15 MG/ML VIAL (*BKC) IV PUSH (07:00)
[2024-10-21] MEDS: ACETAMINOPHEN 500 MG TABLET 1000 MG PO ×3 (07:00→19:12)
--- NOTE | 2024-10-21 07:13 | WPDHPUPDATE1 ---
History and Physical Update Update Date/Time: 10/21/24 07:13 History and Physical has been reviewed, including an updated exam of the patient. There are NO changes in the patient's condition. Risks, benefits, and alternatives have been discussed and questions answered. Patient agrees to proceed with procedure.
[2024-10-21] MEDS: SCOPOLAMINE 1 MG PATCH 1 PATCH TRANSDERM (07:15)
[2024-10-21] MEDS: ceFAZolin 2 GM/D5W 50 ML 2 GM/50 ML BAG IVPB (07:20)
[2024-10-21 07:36] LABS: BEDSIDEPREGUCG Negative (Negative)
--- NOTE | 2024-10-21 08:26 | S_PTH ---
PATIENT: Adriana Iverson LOC: [facility] U#:[id number] AGE/SX: 53/F ROOM: RE10/21/[address]: Lars Jason MD : 1970 BED: DIS: 10/22/2024 SPEC #: [id number] RECD: 10/21/24 10:48 STATUS: GRAZYNA REQ #: [id number] OBI: 10/21/24 08:[address]: Lars Jason DEPT: [facility] Surgical RECD BY: Nikki Mari ENTERED: 10/21/24 10:48 SP TYPE: Surgical OTHR DR: Lisa Palafox, DO Tissues: A - Uterus Procedures: Hematoxylin and Eosin Stain Gross and Microscopic Level 5
--- NOTE | 2024-10-21 08:42 | W.PM.PROC2 ---
Procedure Note - Detailed Date of Procedure 10/21/24 Pre-op Diagnosis Post Endometrial Ablation Syndrome Post-op Diagnosis Same Procedure Performed 1. Robotic assisted total laparoscopic hysterectomy with bilateral salpingectomy Surgeon Lars Jason MD Anesthesia General Findings Enlarged globular uterus with tubes and ovaries without abnormality Description of Procedure Patient prepped draped usual manner for this procedure. Cervical instruments were placed for uterine mobility throughout the case. Abdominal trocar sites were marked and trocars were placed under direct visualization. These trocars were then attached to the de Jena system and instruments were placed again under direct visualization. The surgeon moved to the console. Mesial salpinx bilaterally cauterized and cut and tubes removed. Utero-ovarian ligaments were cauterized and cut to drop the ovaries out of the operative field. Round ligament was cauterized and cut and bladder flap was developed the posterior leaf the broad ligament was also developed to skeletonize the uterine vessels. Once this was done the vessels were cauterized and cut. With vascularity now taken away from the uterus the posterior cul-de-sac was entered and this was carried circumferentially to separate the cervix from the Ginger. The uterus was delivered into the vagina. Cuff was then closed from the right angle to the midline and from the left angle to the midline with V lock sutures. A third V lock suture was placed imbricating over the entirety of the vaginal cuff. Irrigation was undertaken and there was no bleeding. Marvel was placed empirically over the entirety of the raw edges, again no bleeding was noted. Gas was allowed to escape trocars removed incisions approximated using 0 Monocryl and the patient was sent to recovery room in stable condition. Estimated Blood Loss 100 Drains No Packing No Pathology Yes Complications No immediate complications Condition Stable Disposition PACU [facility] Billing Surgery - Charge Forward: Surgery Billing
[2024-10-21] MEDS: fentaNYL CITRATE INJ (*CRX) 100 MCG/2 ML VIAL 25 MCG IV PUSH (09:13)
--- NOTE | 2024-10-21 09:49 | OBPPTRN ---
Patient transferred to post room #291 via bed. Support person present. Oriented to unit, room, information board, admission packet and security measures. Patient verbalizes understanding.
[2024-10-21] MEDS: KETOROLAC 30 MG/ML VIAL (*BKC) IV PUSH ×2 (13:05→19:12)
[2024-10-21] MEDS: SIMETHICONE 80 MG TAB.CHEW PO ×2 (13:05→16:24)
[2024-10-21] MEDS: DOCUSATE SODIUM 100 MG CAPSULE PO (16:24)
[2024-10-22 01:18] VITALS: BP 129/81; PULSE 65; RESP 16; TEMP 36.6; O2SAT 99
[2024-10-22] MEDS: ACETAMINOPHEN 500 MG TABLET 1000 MG PO ×2 (01:19→08:09)
[2024-10-22] MEDS: KETOROLAC 30 MG/ML VIAL (*BKC) IV PUSH (01:20)
[2024-10-22 04:45] VITALS: BP 122/81; PULSE 61; RESP 16; TEMP 36.8; O2SAT 99
[2024-10-22 05:34] LABS: Basophils Percent Auto 0.2 % (0.2-1.2); Eosinophils Percent Auto 0.2 % (0-4.4); Hematocrit 37.6 % (37.0-47.0); Hemoglobin 12.4 g/dL (12.0-15.0); Immature Granulocyte Absolute 0.03 K/mm3 (0.00-0.031); Immature Granulocyte Percent A 0.3 % (0-0.5); Lymphocytes Absolute Auto 1.98 K/mm3 (0.9-3.2); Lymphocytes Percent Auto 19.9 % (18.3-44.2); Mean Corpuscular Hemoglobin 30.5 pg (26-34); Mean Corpuscular Volume 92.4 fl (80-100); Mean Platelet Volume 10.5 fl (7.4-10.4); Monocytes Absolute Auto 0.9 K/mm3 (0.1-0.6); Monocytes Percent Auto 9.1 % (2.6-8.5); Neutrophils Percent Auto 70.3 % (45.5-73.1); Platelet Count Result 292 k/mm3 (150-375); Red Blood Count 4.07 M/mm3 (4.2-5.4); Red Cell Distribution Width 13.1 % (11.5-14.5); White Blood Count 9.9 K/mm3 (4.5-10.0)
[2024-10-22] MEDS: SIMETHICONE 80 MG TAB.CHEW PO (08:08)
[2024-10-22] MEDS: IBUPROFEN 600 MG TABLET PO (08:09)
[2024-10-22] MEDS: DOCUSATE SODIUM 100 MG CAPSULE PO (08:09)
[2024-10-22 08:19] VITALS: BP 119/75; PULSE 66; RESP 16; TEMP 36.8; O2SAT 97
== END 2024-10-22 09:45 | disposition home or self-care (01) ==
LOC: ANHSURGERY 09:45 → ANHOB2 10-22 06:26
PROVIDERS: PCP Family Medicine Sports Medicine; Visit Provider Obstetrics & Gynecology
PROC: (CPT 58571; principal; 2024-10-21 07:30)
DX: N92.0 Excessive and frequent menstruation with regular cycle (principal); N99.85 Post endometrial ablation syndrome; G89.18 Other acute postprocedural pain; E66.9 Obesity, unspecified; Z68.32 Body mass index [BMI] 32.0-32.9, adult; Z98.890 Other specified postprocedural states; Z80.9 Family history of malignant neoplasm, unspecified; Z82.49 Family history of ischemic heart disease and other diseases of the circulatory system
CPT/HCPCS: 58571; S2900; 36415; 85025; 88307; A9270; J0690; J1100; J1885; J2003; J2250; J2405; J2704; J3010; J7030; J7120; Q9968